=== PATIENT | male | born 1965 | race Two or more races ===

== ENCOUNTER 2020-05-26 23:40 | Emergency (ER) | payer OTHER ==
[~2020-05-26] VITALS: Ht 170.2 cm; Wt 129.3 kg
[2020-05-26] MEDS ORDERED: TOPROL XL100 M1 (23:53)
[2020-05-26] MEDS ORDERED: NIFEDIPINE20 MG PO (23:53)
[2020-05-26] MEDS ORDERED: LIPITOR40 M1 (23:54)
== END 2020-05-27 00:43 | disposition left against medical advice (07) ==
LOC: ER 23:40
DX: Z53.20 Procedure and treatment not carried out because of patient's decision for unspecified reasons (principal)

== ENCOUNTER 2020-12-22 09:10 | Day surgery (SDC) | payer OTHER ==
[~2020-12-22 09:10] MED LIST: LIPITOR40 M1; NIFEDIPINE20 MG PO; TOPROL XL100 M1
== END 2020-12-22 15:30 | disposition home or self-care (01) ==
LOC: AMB-ENDOS 09:10
PROVIDERS: ATTEND Colon & Rectal Surgery
DX: D12.2 Benign neoplasm of ascending colon (principal); D12.3 Benign neoplasm of transverse colon; K64.0 First degree hemorrhoids; Z20.822 Contact with and (suspected) exposure to COVID-19

== ENCOUNTER → 2021-08-05 | Emergency (ER) | payer OTHER ==
[~2021-08-05] VITALS: Ht 170.2 cm; Wt 121.6 kg
== END | disposition home or self-care (01) ==
LOC: ER 12:51
DX: R07.89 Other chest pain (principal)

== ENCOUNTER 2021-11-19 06:27 | Outpatient (CLI) | payer OTHER | END 2021-11-19 06:33 | disposition home or self-care (01) | LOC: LAB 06:27 | DX: I11.9 Hypertensive heart disease without heart failure (principal); E78.00 Pure hypercholesterolemia, unspecified; N40.0 Benign prostatic hyperplasia without lower urinary tract symptoms; E66.01 Morbid (severe) obesity due to excess calories; Z12.5 Encounter for screening for malignant neoplasm of prostate; R07.9 Chest pain, unspecified; I10 Essential (primary) hypertension ==

== ENCOUNTER → 2021-11-27 | Emergency (ER) | payer OTHER ==
[~2021-11-27] VITALS: Ht 170.2 cm; Wt 121.6 kg
== END | disposition home or self-care (01) ==
LOC: ER 23:26
DX: R07.89 Other chest pain (principal); I10 Essential (primary) hypertension

== ENCOUNTER 2022-01-10 13:42 | Outpatient (CLI) | payer OTHER | END 2022-01-10 13:43 | disposition home or self-care (01) | LOC: LAB 13:42 | DX: R77.1 Abnormality of globulin (principal) ==

== ENCOUNTER 2022-01-29 06:10 | Outpatient (CLI) | payer OTHER | END 2022-01-29 06:12 | disposition home or self-care (01) | LOC: LAB 06:10 | PROVIDERS: ATTEND Colon & Rectal Surgery | DX: C18.4 Malignant neoplasm of transverse colon (principal); Z86.010 Personal history of colon polyps; Z85.038 Personal history of other malignant neoplasm of large intestine; Z03.818 Encounter for observation for suspected exposure to other biological agents ruled out; Z20.822 Contact with and (suspected) exposure to COVID-19 ==

== ENCOUNTER 2024-05-05 06:05 | Outpatient (CLI) | payer OTHER ==
[2024-05-05 07:26] LABS: URINE BILIRRUBIN NEGATIVE (NEGATIVE); URINE BLOOD TRACE; URINE GLUCOSE NEGATIVE (NEGATIVE); URINE KETONE NEGATIVE (NEGATIVE); URINE LEUKOCYTE NEGATIVE; URINE NITRATE NEGATIVE; URINE PROTEIN NEGATIVE (NEGATIVE); URINE UROBILINOGEN 0.2 E.U./dl
[2024-05-05 07:39] LABS: HEMATOCRIT 41.6 % (39.0-48.0); HEMOGLOBIN 14.1 g/dL (13-16.00); MEAN CELL VOLUME 92.2 fL (80.0-100.00); MEAN CORPUSCULAR HEMOGLOBIN 31.2 pg (27.00-32.0); MEAN CORPUSCULAR HGB CONC 33.9 g/dl (32.0-36.0); PLATELET COUNT 210 K/uL (150-450); RED BLOOD COUNT 4.51 M/uL (4.00-6.00); RED CELL DISTRIBUTION WIDTH 14.1 % (11.5-14.5)
[2024-05-05 08:12] LABS: URINE APPEARANCE CLEAR; URINE COLOR YELLOW
[2024-05-05 08:13] LABS: URINE BACTERIA MODERATE; URINE CRYSTALS FEW /HPF; URINE EPITHELIAL CELLS 0-4 /HPF
[2024-05-05 08:14] LABS: URINE MUCUS SCANT
[2024-05-05 08:50] LABS: ALBUMIN 3.4 gm/dL (3.4-5.0); BILIRUBIN TOTAL 0.36 mg/dL (0.3-1.2); CALCIUM 8.9 mg/dL (8.5-10.1); CHOL HDL RATIO 3.5 (0-5.0); CREATININE SERUM 1.11 mg/dL (0.70-1.30); GFR 68.53; GLOBULINA 4.4 G/DL (2.4-3.5); POTASSIUM 3.65 mEq/L (3.5-5.1); PROSTATIC SPECIFIC ANTIGEN 1.1 NG/ML (0.010-4.00); TOTAL PROTEIN 7.8 gm/dL (6.4-8.2); TSH 1.87 uIU/mL (0.358-3.74)
== END 2024-05-05 06:06 | disposition home or self-care (01) ==
LOC: RAD 06:05
DX: I10 Essential (primary) hypertension (principal)

== ENCOUNTER 2024-06-28 07:07 | Outpatient (CLI) | payer OTHER | END 2024-06-28 07:08 | disposition home or self-care (01) | LOC: NUCLEAR 07:07 | DX: I20.9 Angina pectoris, unspecified (principal) ==

== ENCOUNTER 2024-08-17 06:11 | Outpatient (CLI) | payer OTHER ==
[2024-08-17 07:32] LABS: URINE APPEARANCE Clear; URINE BILIRRUBIN Negative (NEGATIVE); URINE BLOOD Negative; URINE COLOR Yellow; URINE GLUCOSE Negative (NEGATIVE); URINE KETONE Negative (NEGATIVE); URINE LEUKOCYTE Negative; URINE NITRATE Negative; URINE PROTEIN Negative (NEGATIVE); URINE UROBILINOGEN 0.2 E.U./dl
[2024-08-17 07:37] LABS: URINE BACTERIA 12.2 uL (0.0-1933); URINE EPITHELIAL CELLS 3.7 uL (0.0-38.8); URINE RBC 2.2 uL (0.0-20.8); URINE WBC 16.2 uL (0.0-23.2)
== END 2024-08-17 06:15 | disposition home or self-care (01) ==
LOC: LAB 06:11
DX: N40.1 Benign prostatic hyperplasia with lower urinary tract symptoms (principal)

== ENCOUNTER → 2024-12-11 | Emergency (ER) | payer OTHER ==
[~2024-12-11] VITALS: Ht 170.2 cm; Wt 122.5 kg
[~2024-12-11] MED LIST changes: +CEFTRIAXONE SODIUM 1,000 MG VIAL IM ONE; +CEFTRIAXONE SODIUM 1,000 MG VIAL ONE; +KETOROLAC TROMETHAMINE 60 MG VIAL IM ONE; +LIDOCAINE HCL 1%/EPINEPHRINE 20ML VIAL IJ ONE
== END | disposition home or self-care (01) ==
LOC: ER 07:46
DX: L02.11 Cutaneous abscess of neck (principal); I10 Essential (primary) hypertension